=== PATIENT | male | born 1990 | race Caucasian/White ===

== ENCOUNTER 2023-11-10 19:09 | Emergency (ER) | payer OTHER, SELFPAY ==
[2023-11-10 19:16] VITALS: BP 101/67; PULSE 90; RESP 18; TEMP 36.3; O2SAT 98; BMI 29.8
--- NOTE | 2023-11-10 20:13 | XR_ITS ---
Patient: SKY MCGEE Facility:?[facility] RIS Patient ID:?[id number] Site Patient ID:?[id number]. Site :?[id number] Study:?XRay-Extremity Right HAND 3V-11/10/2023 8:45:53 PM Ordering Physician:SHAUN Final Report: INDICATION: Trauma. COMPARISON: None TECHNIQUE: Three views of right hand. AP, lateral, and oblique views FINDINGS: Bones: Normal. No fractures are present. Joints: The joint spaces are normal. Soft tissues: Normal. IMPRESSION: Unremarkable radiographs of the right hand. Dictated by Toby Gerardo MD @ 11/10/2023 10:48:02 PM Signed by:?Toby Gerardo MD @11/10/2023 10:48:02 PM (Electronic Signature)
--- OUTSIDE RECORDS SUMMARY | 2023-11-10 20:15 | XMS_ITS | Referral Summary ---
Author Name Unknown Organization [place] Address [facility] [place] [address] Care Team Providers Care Quality Analyst/Technical Writer Name Role Phone [facility] Primary Care Provider Davey Capps MD Unavailable + [phone] Allergies No known active allergies Medications Medication Sig Dispensed Refills Start Date End Date Status blood glucose monitoring (NO BRAND SPECIFIED) meter device kitIndications:Diabe beatris mellitus, new onset (H) Use as directed. Per insurance coverage 1 kit 05/03/2023 Active blood glucose (NO BRAND SPECIFIED) test stripIndications:Tarah betes mellitus, new onset (H) To use to test glucose level in the blood. Use to test blood sugar 3 times daily as directed. To accompany glucose monitor brands per insurance coverage. 100 strip 05/03/2023 Active blood glucose calibration (NO BRAND SPECIFIED) solutionIndications: Diabetes mellitus, new onset (H) Used to calibrate the blood glucose monitor as needed and as directed. To accompany blood glucose brands per insurance coverage 1 each 05/03/2023 Active blood glucose (NO BRAND SPECIFIED) lancets standardIndications: Diabetes mellitus, new onset (H) To use to test glucose level in the blood. Use to test blood sugar 3 times daily as directed. To accompany glucose monitor brands per insurance coverage. 100 each 05/03/2023 Active Alcohol Swabs PADSIndications:Diab etes mellitus, new onset (H) Use to swab the area of the injection or yovany as directed . Per insurance coverage 100 each 05/03/2023 Active Additional Information Patient not taking.Reported on 06/25/2023 insulin pen needle (31G X 5 MM) 31G X 5 MM miscellaneousIndicat ions:Diabetes mellitus, new onset (H) Use as directed by provider. Per insurance coverage 100 each 05/03/2023 Active Additional Information Patient not taking.Reported on 06/25/2023 metFORMIN (GLUCOPHAGE) 500 MG tabletIndications:Di abetes mellitus, new onset (H) 1 tab daily for 1 week then 1 tab PO BID 60 tablet 05/05/2023 Active apixaban ANTICOAGULANT (ELIQUIS) 5 MG tablet Take 5 mg by mouth 2 times daily Active Active Problems Problem Noted Date Diagnosed Date Diabetes mellitus, type 2 06/27/2023 Pulmonary embolism 05/01/2023 Leg DVT (deep venous thromboembolism), acute, le ft 04/30/2023 Social History Tobacco Use Types Packs/Day Years Used Date Smoking Tobacco: Former Cigarettes Tobacco Cessation:Counseling Given: Not Answered Alcohol Use Standard Drinks/Week Comments Not Currently 0 (1 standard drink = 0.6 oz pur e alcohol) Adolescent Education Answer Date Record ed Getting School Help Needed Not on file 04/30 Sex and Gender Information Value Date Recorded Sex Assigned at Not on file Gender Identity Not on file Sexual Orientation Not on file Last Filed Vital Signs Vital Sign Reading Time Taken Comments Blood Pressure 108/72 06/25/2023 2:13 PM WORM GROWER Pulse 79 06/25/2023 2:13 PM WORM GROWER Temperature 37 ??C (98.6 ??F) 05/05/2023 7:50 AM CDT Respiratory Rate 16 05/05/2023 7:50 AM CDT Oxygen Saturation 99% 06/25/2023 2:13 PM WORM GROWER Inhaled Oxygen Concentration - - Weight 102 kg (224 lb 13.9 oz) 05/05/2023 5:00 A M CDT Height 182.9 cm (6') 04/30/2023 6:07 PM CDT Body Mass Index 30.5 04/30/2023 6:07 PM CDT Plan of Treatment Not on file Procedures Procedure Name Priority Date/Time Associated Diagnosis Comments BASIC METABOLIC PANEL Routine 05/02/2023 5:04 AM CDT HEMOGLOBIN A1C Add-On 04/30/2023 5:44 PM CDT from Last 3 Months or Most Recently Relevant to Health Maintenance Results * (ABNORMAL) Basic metabolic panel (05/02/2023 5:04 AM CDT) [facility] Sodium 138 135 - 145 mmol/L 05/02/2023 5:34 AM CDT LABORATORY Comment:Reference intervals for this test were updated on 04/24/2023 to more accurately reflect our healthy population. There may be differences in the flagging of prior results with similar values performed with this method. Interpretation of those prior results can be made in the context of the updated reference intervals. Potassium 4.3 3.4 - 5.3 mmol/L 05/02/2023 5:34 AM CDT LABORATORY Chloride 100 98 - 107 mmol/L 05/02/2023 5:34 AM CDT LABORATORY Carbon Dioxide (CO2) 26 22 - 29 mmol/L 05/02/2023 5:34 AM CDT LABORATORY Anion Gap 12 7 - 15 mmol/L 05/02/2023 5:34 AM CDT LABORATORY Urea Nitrogen 8.3 6.0 - 20.0 mg/dL 05/02/2023 5:34 AM CDT LABORATORY Creatinine 0.65(L) 0.67 - 1.17 mg/dL 05/02/2023 5:34 AM CDT LABORATORY GFR Estimate >90 >60 mL/min/1. 73m2 05/02/2023 5:34 AM CDT LABORATORY Calcium 9.2 8.6 - 10.0 mg/dL 05/02/2023 5:34 AM CDT LABORATORY Glucose 172(H) 70 - 99 mg/dL 05/02/2023 5:34 AM CDT LABORATORY Blood STRUCTURE OF LEFT UPPER LIMB / Unknown Venipuncture / Unknown 05/02/2023 5:04 AM CDT 05/02/2023 5:09 AM CDT My Cool MD LAB - BLOOD ORDERABL ES LABORATORY [facility] Acute Care Lab [address] 1st floor, [address] [place] [address], [facility] [phone] * (ABNORMAL) Hemoglobin A1c (04/30/2023 5:44 PM CDT) Hemoglobin A1C 8.5(H) <5.7 % 04/30/2023 6:42 PM CDT RH LABORATORY Comment: Normal <5.7% Prediabetes 5.7-6.4% ?? Diabetes 6.5% or higher Note: Adopted from ADA consensus guidelines. Blood STRUCTURE OF LEFT UPPER LIMB / Unknown Venipuncture / Unknown 04/30/2023 5:44 PM CDT 04/30/2023 5:47 PM CDT Rajani Faust PA-C LAB - BLOOD ORDERA BLES LABORATORY [facility] Acute Care Lab [address] Lab (1st floor, no room number) [place] [address], [facility] [phone] from Last 3 Months or Most Recently Relevant to Health Maintenance Advance Directives For more information, please contact: [phone] * Full Code (Latest Code Status on File) Date Activated Date Inactivated Comments 05/01/2023 1:21 AM 05/05/2023 1:00 PM All basic an d advanced life-sustaining interventions are performed as appropriate Question Answer Comments Code status determined by: Discussion with patie nt/ legal decision maker * Full Code Date Activated Date Inactivated Comments 04/30/2023 7:17 PM 05/01/2023 1:08 AM All basic an d advanced life-sustaining interventions are performed as appropriate Question Answer Comments Code status determined by: Discussion with patie nt/ legal decision maker Care Teams Quality Analyst/Technical Writer Relationship Specialty Start Date End Date [address] [address] PCP - General 05/04/23 Davey Capps MD [facility] [address] [place] [address] Assigned Heart and Vascular Provider 06/30/23
--- OUTSIDE RECORDS SUMMARY | 2023-11-10 20:15 | XMS_ITS | Clinical Summary ---
Author Name Unknown Organization [place] Address [facility] [place] [address] Care Team Providers Care Stringing Machine Tender Name Role Phone [facility] Primary Care Provider Davey Capps MD Unavailable + [phone] Allergies No known active allergies Medications Medication [...] (deep venous thromboembolism), acute, le ft 04/30/2023 Family History Medical History Relation Comments Clotting Disorder No family hx of Social History Tobacco Use Types Packs/Day Years [...] Comments Blood Pressure 108/72 06/25/2023 2:13 PM HAND LASTER Pulse 79 06/25/2023 2:13 PM HAND LASTER Temperature 37 ??C (98.6 ??F) 05/05/2023 7:50 AM CDT Respiratory Rate 16 05/05/2023 7:50 AM CDT Oxygen Saturation 99% 06/25/2023 2:13 PM HAND LASTER Inhaled Oxygen Concentration - - Weight 102 kg (224 lb 13.9 oz) 05/05/2023 5:00 A M CDT Height 182.9 cm (6') 04/30/2023 6:07 PM CDT Body Mass Index 30.5 04/30/2023 6:07 PM CDT Plan of Treatment Health Maintenance Due Date Last Done Comments ADVANCE CARE PLANNING 1988 ANNUAL REVIEW OF HM ORDERS 1988 DIABETIC FOOT EXAM 1988 EYE EXAM 1988 LIPID 1988 MICROALBUMIN 1988 YEARLY PREVENTIVE VISIT 1988 Pneumococcal Vaccine: Pediatrics (0 to 5 Years) and At-Risk Patients (6 to 64 Years) (1 of 2 - PCV) 1994 HIV SCREENING 2003 HEPATITIS C SCREENING 2006 HEPATITIS B IMMUNIZATION (1 of 3 - 19+ 3-dose series) 2007 COVID-19 Vaccine (1 - 2022-2 4 season) 2023 INFLUENZA VACCINE (#1) 2023 PHQ-2 (once per calendar year) 2023 A1C 07/31/2023 04/30/2023 BMP 05/02/2024 05/02/2023, 05/01/2023, 04/30/2023 DTAP/TDAP/TD IMMUNIZATION (2 - Td or Tdap) 11/24/2024 11/24/2014 HPV IMMUNIZATION Aged Out No longer e ligible based on patient's age to complete this topic IPV IMMUNIZATION Aged Out No longer e ligible based on patient's age to complete this topic MENINGITIS IMMUNIZATION Aged Out No l onger eligible based on patient's age to complete this topic RSV MONOCLONAL ANTIBODY Aged Out No l onger eligible based on patient's age to complete this topic Procedures Procedure Name Priority Date/Time Associated Diagnosis Comments BASIC METABOLIC PANEL Routine 05/02/2023 5:04 AM CDT HEMOGLOBIN A1C Add-On 04/30/2023 5:44 PM CDT from Last 3 Months or Most Recently Relevant to Health Maintenance Results * (ABNORMAL) Basic metabolic panel (05/02/2023 5:04 AM CDT) [facility] Sodium 138 135 - 145 mmol/L 05/02/2023 [...] MD LAB - BLOOD ORDERABL ES LABORATORY [facility] Acute Care Lab [address] 1[address] floor, [address] [place] [address], [facility] [phone] * (ABNORMAL) Hemoglobin A1c (04/30/2023 5:44 PM CDT) Hemoglobin A1C 8.5(H) <5.7 % 04/30/2023 6:42 PM CDT LABORATORY Comment: Normal <5.7% Prediabetes 5.7-6.4% ?? Diabetes 6.5% or higher Note: Adopted from ADA consensus guidelines. Blood STRUCTURE OF LEFT UPPER LIMB / Unknown Venipuncture / Unknown 04/30/2023 5:44 PM CDT 04/30/2023 5:47 PM CDT Rajani Faust PA-C LAB - BLOOD ORDERA BLES [facility] Acute Care Lab [address] Lab (1st floor, no room number) [place] [address], [facility] [phone] from Last 3 Months or Most Recently Relevant to Health Maintenance Advance Directives For more information, please contact: [phone] * Full Code (Latest Code Status on [...] patie nt/ legal decision maker Care Teams Stringing Machine Tender Relationship Specialty Start Date End Date [address] [address] PCP - General 05/04/23 Davey Capps MD [facility] [address] [place] [address] Assigned Heart and Vascular Provider 06/30/23
--- NOTE | 2023-11-10 20:16 | ED_ITS ---
HPI - General Adult General Chief complaint: Laceration/Wound Stated complaint: Laceration right hand Time Seen by Provider: 11/10/23 19:26 Source: patient Mode of arrival: ambulatory Limitations: no limitations History of Present Illness HPI narrative: 33-year-old male coming in today after sustaining an injury while he was roping bowels. The rope got caught around his hand and he suffered a laceration between the thumb and the forefinger. He is also complaining of pain at the base of the thumb. Denies other injury. Tetanus shot was updated in 2014. Related Data Home Medications Medication Instructions Recorded Confirmed alogliptin-metformin PO 11/10/23 apixaban .ROUTE 11/10/23 Previous Rx's Medication Instructions Recorded cefadroxil 500 mg capsule 500 mg PO BID 7 days #14 caps 11/10/23 Allergies Allergy/AdvReac Type Severity Reaction Status Date / Time No Known Drug Allergies Allergy Verified 11/10/23 21:09 Review of Systems Status of ROS: Reports: 6 or more systems reviewed and unremarkable except as noted in History and below Exam Narrative: Exam Narrative: Well-nourished well-developed patient in mild distress. Alert and oriented. Answers questions appropriately. Mood and affect are appropriate. Thoughts are goal oriented and rational. No tangential or magical thinking noted. Patient speaks in full sentences without needing to catch his breath. HEENT: Normocephalic atraumatic. Pupils are equally round reactive to light. Extraocular muscles are intact. Conjunctivae are moist without any icterus noted. Moist mucous membranes. Extremities: Patient has a laceration that extends through the dermis into the subcutaneous tissue that starts at the base of the thumb on the palmar surface and wraps around the base of the thumb into the dorsal surface. It is a C-shaped laceration around the base of the thumb. He has full range of motion of the thumb with flexion extension but it hurts him quite a bit. There are no tendon exposed, no bone is exposed. Const: Vital Signs, click to edit/add: Vital Signs - 24 hr 11/10/23 19:16 Temperature 97.4 F L Pulse Rate [Left P ulse Oximeter] 90 Respiratory Rate 18 Blood Pressure [Le ft Upper Arm] 101/67 Pulse Oximetry 98 Oxygen Delivery Me thod Room Air Course Course ED Course: The laceration was anesthetized with lidocaine. The wound was irrigated and explored. Thirteen sutures with 3-0 Ethilon were used with good skin approximation. We proceeded with x-rays of the hand: X-ray, read by me, does not show any acute fractures. Radiological over-read not available at this time as readings are taking approximately 2 hours or more to come back today. The laceration was dressed patient was placed in the thumb spica. Tetanus shot updated today. Vital Signs Vital signs: Initial Vital Signs Temperature 97.4 F L 11/10/23 19:16 Temperature Source Temporal Artery Scan 11/10/23 19:16 Pulse Rate 90 11/10/23 19:16 Pulse Rhythm Regular 11/10/23 19:16 Respiratory Rate 18 11/10/23 19:16 Blood Pressure 101/67 11/10/23 19:16 Blood Pressure Mean 78 11/10/23 19:16 Blood Pressure Position Sitting 11/10/23 19:16 Pulse Oximetry 98 11/10/23 19:16 Oxygen Delivery Method Room Air 11/10/23 19:16 Vital Signs Temperature 97.4 F L 11/10/23 19:16 Pulse Rate 90 11/10/23 19:16 Respiratory Rate 18 11/10/23 19:16 Blood Pressure 101/67 11/10/23 19:16 Pulse Oximetry 98 11/10/23 19:16 Oxygen Delivery Method Room Air 11/10/23 19:16 Temperature 97.4 F L 11/10/23 19:16 Pulse Rate 90 11/10/23 19:16 Respiratory Rate 18 11/10/23 19:16 Blood Pressure 101/67 11/10/23 19:16 Pulse Oximetry 98 11/10/23 19:16 Oxygen Delivery Method Room Air 11/10/23 19:16 Medications Administered Medications: Discontinued Medications Generic Name Dose Route Start Last Admin Trade Name Freq PRN Reason Stop Dose Admin Hydrocodone Bitart/Acetaminophen 2 tab 11/10/23 20:14 11/10/23 20:32 Hydrocodone-Acetamin 5-325 Mg 1 Tab PO 11/10/23 20:15 2 tab ONCE ONE Administration Diphtheria/Tetanus/Acell Pertussis 0.5 ml 11/10/23 20:14 11/10/23 21:21 Tetanus/Diphth/Pertussis 0.5 Ml Syringe IM 11/10/23 20:15 0.5 ml .ONCE ONE Administration Lidocaine HCl 20 ml 11/10/23 19:44 11/10/23 20:32 Lidocaine Hcl 2 % Multidose 20 Ml Vial INJECTION 11/10/23 19:45 20 ml ONCE ONE Administration Medical Decision Making MDM Narrative Medical decision making narrative: 33-year-old male with laceration of the hand. He likely suffered a hyperextension injury of the thumb as well. Given the location of his laceration if he extends his thumb he can certainly rip out the sutures. Given the amount of pain he is having at the base of the thumb along with the location of the laceration we did put him in a thumb spica to reduce movement. We discussed wound hygiene, signs and symptoms of infection, and reasons to return to clinic. Of note, radiologic over-read was normal. Imaging Data X-ray hand: Attestation: I have reviewed the pertinent imaging results. Radiologist's impression: Study:?XRay Extremity Right HAND 3V-11/10/2023 8:45:53 PM Ordering Physician:SHAUN Final Report: INDICATION: Trauma. COMPARISON: None TECHNIQUE: Three views of right hand. AP, lateral, and oblique views FINDINGS: Bones: Normal. No fractures are present. Joints: The joint spaces are normal. Soft tissues: Normal. IMPRESSION: Unremarkable radiographs of the right hand. Discharge Plan Discharge Clinical Impression: Laceration, Hyperextension injury of thumb Patient Disposition: Home, Self-Care Condition: Stable Additional Instructions: Keep hand clean and dry. If you are going to get that hand dirty make sure to wear a glove. Wash it with warm soapy water once a day and keep the laceration covered. Wear your splint at all times. The splint will keep the thumb comfortable and also prevent hyperextension which may cause the sutures to rip out. The suture should be removed by your primary care provider in 7-10 days. Monitor for signs of infection which include redness or purulent drainage from the laceration, this should hopefully be prevented given the fact that you will be sent home with an antibiotic. Elevate the hand as much as possible to help with swelling. Take all antibiotics as prescribed. Antibiotics sent to the pharmacy. [place] 5-3 25 1-2 tablets every 4-6 hours, 8 tablets sent to [facility]. Do not operate heavy machinery, drive or ride horses if you are taking these medications. Activity Level: No Restrictions Discharge Diet: Regular Prescriptions: New cefadroxil 500 mg capsule 500 mg PO BID 7 Days Qty: 14 0RF No Action alogliptin-metformin PO apixaban [Eliquis] .ROUTE Follow Up/Referrals: Provider,Not a Local [Primary Care Provider] - Stand Alone Forms: [facility] Info Instructions
[2023-11-10] MEDS: lidocaine HCL 2 % MULTIDOSE 20 ML VIAL INJECTION (20:32)
[2023-11-10] MEDS: HYDROCODONE-ACETAMIN 5-325 MG 1 TAB 2 TAB PO (20:32)
[2023-11-10] MEDS: TETANUS/DIPHTH/PERTUSSIS 0.5 ML SYRINGE IM (21:21)
--- OUTSIDE RECORDS SUMMARY | 2023-12-17 14:22 | XMS_ITS | Encounter Summary ---
Author Name Unknown Organization [place] Address [address] [facility] [place] [address] Care Team Providers Care Straight Tooth Gear Generator Operator Name Role Phone [facility] Primary Care Provider Davey Capps MD Unavailable [phone] Reason for Visit * Reason Onset Date Comments Scheduling 12/11/2023 Encounter Details Date Type Department Care Team (Late st Contact Info) Description 12/11/2023 Telephone [facility] [place] [address] [place] [address] Davey Capps MD [facility] [address] [place], [place] [id number] Scheduling Social History Tobacco Use Types Packs/Day Years Used Date Smoking Tobacco: Former Cigarettes Alcohol Use Standard Drinks/Week Comments Not Currently 0 (1 standard drink = 0.6 oz pur e alcohol) Adolescent Education Answer Date Record ed Getting School Help Needed Not on file 04/30 Sex and Gender Information Value Date Recorded Sex Assigned at Not on file Gender Identity Not on file Sexual Orientation Not on file documented as of this encounter Miscellaneous Notes * Telephone Encounter - Sarai Mcclellan - 12/13/2023 10:26 AM CDT Called with interpretor - spoke with patient's spouse and scheduled US for 01/03/24 * Telephone Encounter - Halima Manzanares - 12/11/2023 12:17 PM CDT Called with certified prosthetist, left voicemail for patient to call back to schedule appointments. [facility] telephone number provided by certified prosthetist. Please schedule patient for US Lower Extremity Venous Duplex Left per Dr Capps. RN will call with results! documented in this encounter Plan of Treatment Upcoming Encounters Date Type Department Care Team (Late st Contact Info) Description 01/03/2024 8:00 AM CDT Appointment [facility] [address] [place] [address] Davey Capps MD [facility] [address] [place], [place] [address] documented as of this encounter Visit Diagnoses Not on filedocumented in this encounter Care Teams Straight Tooth Gear Generator Operator Relationship Specialty Start Date End Date [address] [id number] PCP - General 05/04/23 Davey Capps MD [facility] [address] [place], [place] [phone] Assigned Heart and Vascular Provider 06/30/23 documented as of this encounter
--- OUTSIDE RECORDS SUMMARY | 2023-12-17 14:22 | XMS_ITS | Clinical Summary ---
Author Name Unknown Organization [place] Address [facility] [place] [address] Care Team Providers Care Steeplechase Jockey Name Role Phone [facility] Primary Care Provider Davey Capps MD Unavailable + [phone] Allergies No known active allergies Medications Medication [...] (deep venous thromboembolism), acute, le ft 04/30/2023 Encounters Date Type Department Care Team Description 12/11/2023 Telephone [facility] [place] [address] [place] [address] Davey Capps MD Scheduling from Last 3 Months Family History Medical History Relation Comments Clotting [...] Comments Blood Pressure 108/72 06/25/2023 2:13 PM SENSITIZER Pulse 79 06/25/2023 2:13 PM SENSITIZER Temperature 37 ??C (98.6 ??F) 05/05/2023 7:50 AM CDT Respiratory Rate 16 05/05/2023 7:50 AM CDT Oxygen Saturation 99% 06/25/2023 2:13 PM SENSITIZER Inhaled Oxygen Concentration - - Weight 102 kg (224 lb 13.9 oz) 05/05/2023 5:00 A M CDT Height 182.9 cm (6') 04/30/2023 6:07 PM CDT Body Mass Index 30.5 04/30/2023 6:07 PM CDT Plan of Treatment Upcoming Encounters Date Type Department Care Team (Late st Contact Info) Description 01/03/2024 8:[address] [facility] [address] [place] [address] Davey Capps MD [facility] [address] [place], [place] [id number] Health Maintenance Due Date Last Done Comments [...] - 19+ 3-dose series) 2007 COVID-19 Vaccine ( - 2022-2 4 season) 2023 PHQ-2 (once per calendar year) 2023 A1C 07/31/2023 04/30/2023 INFLUENZA VACCINE (Season Ended) 2024 BMP 05/02/2024 05/02/2023, 05/01/2023, 04/30/2023 DTAP/TDAP/TD IMMUNIZATION (3 - Td or Tdap) 11/09/2033 11/10/2023, 11/24/2014 HPV IMMUNIZATION Aged Out No longer [...] Basic metabolic panel (05/02/2023 5:04 AM CDT) Sodium 138 135 - 145 mmol/L 05/02/2023 [...] MD LAB - BLOOD ORDERABL ES LABORATORY [facility] Acute Care Lab [address] 1st floor, [address] [place] [address] [phone] * (ABNORMAL) Hemoglobin A1c (04/30/2023 5:44 PM CDT) Hemoglobin A1C 8.5(H) <5.7 % 04/30/2023 6:42 PM CDT LABORATORY Comment: Normal <5.7% Prediabetes 5.7-6.4% ?? Diabetes 6.5% or higher Note: Adopted from ADA consensus guidelines. Blood STRUCTURE OF LEFT UPPER LIMB / Unknown Venipuncture / Unknown 04/30/2023 5:44 PM CDT 04/30/2023 5:47 PM CDT Rajani Faust PA-C LAB - BLOOD ORDERA BLES LABORATORY [facility] Acute Care Lab [address] Lab (1st floor, no room number) [place] [address], [facility] [phone] from Last 3 Months or Most Recently Relevant to Health Maintenance Advance Directives For more information, please contact: [phone] * Full Code (Latest Code Status on [...] patie nt/ legal decision maker Care Teams Steeplechase Jockey Relationship Specialty Start Date End Date [address] [address] PCP - General 05/04/23 Davey Capps MD [facility] [address] [place] [address] Assigned Heart and Vascular Provider 06/30/23
--- OUTSIDE RECORDS SUMMARY | 2023-12-17 14:22 | XMS_ITS | Referral Summary ---
Author Name Unknown Organization [facility] Address [address] [place] [address] Care Team Providers Care Social Service Worker Name Role Phone [facility] Primary Care Provider Davey Capps MD Unavailable Encounters Date Type Department Care Team Description 12/11/2023 [facility] [place] [address] [place] [address] Davey Capps MD Scheduling from Last 3 Months Allergies No known active allergies Medications Medication [...] Comments Blood Pressure 108/72 06/25/2023 2:13 PM [employer] Pulse 79 06/25/2023 2:13 PM [employer] Temperature 37 ??C (98.6 ??F) 05/05/2023 7:50 AM CDT Respiratory Rate 16 05/05/2023 7:50 AM CDT Oxygen Saturation 99% 06/25/2023 2:13 PM [employer] Inhaled Oxygen Concentration - - Weight 102 kg (224 lb 13.9 oz) 05/05/2023 5:00 A M CDT Height 182.9 cm (6') 04/30/2023 6:07 PM CDT Body Mass Index 30.5 04/30/2023 6:07 PM CDT Plan of Treatment Upcoming Encounters Date Type Department Care Team (Late st Contact Info) Description 01/03/2024 8:00 AM CDT Appointment [facility] [address] [place] [address] Davey Capps MD [facility] [address] [place] [address] Procedures Procedure Name Priority Date/Time Associated Diagnosis [...] MD LAB - BLOOD ORDERABL ES LABORATORY [facility] [address], [address] [place] [address], [facility] [phone] * (ABNORMAL) Hemoglobin A1c (04/30/2023 5:44 PM CDT) Hemoglobin A1C 8.5(H) <5.7 % 04/30/2023 6:42 PM CDT LABORATORY Comment: Normal <5.7% Prediabetes 5.7-6.4% ?? Diabetes 6.5% or higher Note: Adopted from ADA consensus guidelines. Blood STRUCTURE OF LEFT UPPER LIMB / Unknown Venipuncture / Unknown 04/30/2023 5:44 PM CDT 04/30/2023 5:47 PM CDT Rajani Faust PA-C LAB - BLOOD ORDERA BLES LABORATORY [facility] [address] Lab (1st floor, no room number) [place] [address], [place] [phone] from Last 3 Months or Most Recently Relevant to Health Maintenance Advance Directives For more information, please contact: [phone] * Full Code (Latest Code Status on File) Date Activated Date Inactivated Comments 05/01/2023 1:21 AM 05/05/2023 1:00 PM All basic an d advanced life-sustaining interventions are performed as appropriate Question Answer Comments Code status determined by: Discussion with patibrittanie nt/ legal decision maker * Full Code Date Activated Date Inactivated Comments 04/30/2023 7:17 PM 05/01/2023 1:08 AM All basic an d advanced life-sustaining interventions are performed as appropriate Question Answer Comments Code status determined by: Discussion with maricarmen nt/ legal decision maker Care Teams Social Service Worker Relationship Specialty Start Date End Date [address] [address] PCP - General 05/04/23 Davey Capps MD [facility] [address] [place] [address] Assigned Heart and Vascular Provider 06/30/23
== END 2023-11-10 22:30 | disposition home or self-care (01) ==
PROVIDERS: Emergency Provider Family Medicine
DX: S61.011A Laceration without foreign body of right thumb without damage to nail, initial encounter (principal); S66.201A Unspecified injury of extensor muscle, fascia and tendon of right thumb at wrist and hand level, initial encounter; W49.09XA Other specified item causing external constriction, initial encounter; Z23 Encounter for immunization
CPT/HCPCS: 12001; 73130; 90471; 90715; 99283; 99284; A9270